=== PATIENT | male | born 1930 | race Caucasian/White ===

== ENCOUNTER 2019-07-26 06:52 | Day surgery (SDC) | payer OTHER ==
[~2019-07-26] VITALS: Ht 175.3 cm; Wt 83.9 kg
[2019-07-26] MEDS ORDERED: CEFAZOLIN SOD 1 GM in D5W 50 ML IV ONE (07:00)
[2019-07-26] MEDS ORDERED: POLYMYXIN 500,000/BACIT.10,000 UNITS in NS IRR 1 L IR ONE (09:24)
[2019-07-26] MEDS ORDERED: BUPIVACAINE /DEX PF 0.75% SPINAL 2 ML AMP INJ ONE (09:30)
[2019-07-26] MEDS ORDERED: LR 1,000 ML IV.SOLN IV ONE (09:30)
[2019-07-26] MEDS ORDERED: PROPOFOL 200MG/ 20ML VIAL (DIPRIVAN) IV ONE (09:30)
[2019-07-26] MEDS ORDERED: MIDAZOLAM HCL 5 MG/5 ML VIAL IVP ONE (09:30)
[2019-07-26] MEDS ORDERED: MORPHINE 4 MG/ML INJ. SYRINGE IVP PRN ×3 (10:00)
[2019-07-26] MEDS ORDERED: ONDANSETRON HCL 4 MG/2 ML VIAL IVP PRN (10:00)
[2019-07-26] MEDS ORDERED: LR 1,000 ML IV SCH (10:00)
[2019-07-26] MEDS ORDERED: HYDROcodone/ACETAMIN 5-325 MG TAB (NORCO/ VICODIN) PO PRN (11:00)
[2019-07-26] MEDS ORDERED: HYDROmorphone 1 MG INJ. 1 MG/ML AMPUL IVP PRN (11:00)
[2019-07-26] MEDS ORDERED: HYDROcodone/ACETAMIN 5-325 MG TAB (NORCO/ VICODIN) ONE (15:04)
[2019-07-26 15:41] VITALS: BP_SYST 169
[2019-07-26] MEDS ORDERED: CARBIDOPA/LEVODOPA 25/100 MG TABLET PO ONE (19:00)
[2019-07-26 20:00] VITALS: BP_SYST 155
[2019-07-26] MEDS: HYDROcodone/ACETAMIN 5-325 MG TAB (NORCO/ VICODIN) PO PRN (20:44)
[2019-07-26] MEDS: D5/0.45 NS 1,000 ML IV SCH (20:54)
[2019-07-27] VITALS: BP_SYST 126
[2019-07-27] MEDS: D5/0.45 NS 1,000 ML IV SCH ×2 (00:34→06:54)
[2019-07-27] MEDS ORDERED: CARBIDOPA/LEVODOPA 25/100 MG TABLET PO SCH (06:00)
[2019-07-27] MEDS: HYDROcodone/ACETAMIN 5-325 MG TAB (NORCO/ VICODIN) PO PRN (07:04)
[2019-07-27 08:20] VITALS: BP_SYST 125
[2019-07-27 09:52] VITALS: BP_SYST 125
== END 2019-07-27 11:30 | disposition home or self-care (01) ==
LOC: SMU 06:52 → SDS 06:52 → EDSTATUS 09:00 → SMU 16:33 → SDS 07-27 11:30
PROVIDERS: ATTEND Colon & Rectal Surgery
DX: K40.20 Bilateral inguinal hernia, without obstruction or gangrene, not specified as recurrent (principal); D17.6 Benign lipomatous neoplasm of spermatic cord; J44.9 Chronic obstructive pulmonary disease, unspecified; G20 Parkinson's disease; I25.10 Atherosclerotic heart disease of native coronary artery without angina pectoris; F03.90 Unspecified dementia, unspecified severity, without behavioral disturbance, psychotic disturbance, mood disturbance, and anxiety; I12.9 Hypertensive chronic kidney disease with stage 1 through stage 4 chronic kidney disease, or unspecified chronic kidney disease; N18.3 Chronic kidney disease, stage 3 (moderate); H35.3290 Exudative age-related macular degeneration, unspecified eye, stage unspecified; H53.2 Diplopia; M19.90 Unspecified osteoarthritis, unspecified site; I70.0 Atherosclerosis of aorta; I95.9 Hypotension, unspecified; Z78.9 Other specified health status; Z90.89 Acquired absence of other organs; Z83.3 Family history of diabetes mellitus; Z82.49 Family history of ischemic heart disease and other diseases of the circulatory system
CPT/HCPCS: 49505; C1781 ×3; J0690; J2250; J2704; J3490; J7060; J7120